=== PATIENT | male | born 1995 | race Caucasian/White ===

== ENCOUNTER → 2016-12-19 | Outpatient (CLI) | payer BC ==
--- NOTE | 2016-12-19 11:34 | KCIC ---
Bilateral 3 view ankle and bilateral 3 view foot HISTORY: Primary osteoarthritis. Right ankle No acute fracture or dislocation. Joints and soft tissues appear unremarkable. Left ankle No acute fracture or dislocation. Joints and soft tissues unremarkable Right foot No acute fracture or dislocation. Joints and soft tissues appear intact. Incidentally noted bifid lateral hallux sesamoid Left foot No evidence of acute fracture or bone destruction. Chronic fragmentation at the proximal tubercle of the fifth metatarsal, likely a accessory ossicle, versus an old ununited fracture. Joints and alignment appear intact. Incidentally noted bifid lateral hallux sesamoid. IMPRESSION: No radiographic evidence of advanced osteoarthritis. Electronically signed by: Joseluis Porter MD (12/19/2016 11:31 AM) [facility]
== END | disposition home or self-care (01) ==
LOC: KCIC 10:00
PROVIDERS: ATTEND Physician Assistant Medical
DX: M19.071 Primary osteoarthritis, right ankle and foot (principal); M19.072 Primary osteoarthritis, left ankle and foot
CPT/HCPCS: 73610; 73630

== ENCOUNTER → 2021-03-28 | Outpatient (CLI) | payer BC ==
--- NOTE | 2021-03-28 16:45 | KCIC ---
3 views left foot HISTORY: Pain for 3 weeks AP lateral oblique views There is a fracture through the base of the fifth metatarsal which appears well corticated. The remai truong visualized osseous structures appear normal. IMPRESSION: Fracture the base the fifth metatarsal appears old. No acute findings. Electronically signed by: Henrik Mast III, MD (03/28/2021 4:43 PM) [facility]
== END ==
LOC: KCIC 13:02
PROVIDERS: ATTEND Physician Assistant
DX: R22.42 Localized swelling, mass and lump, left lower limb (principal); M79.672 Pain in left foot; Z87.81 Personal history of (healed) traumatic fracture
CPT/HCPCS: 73630